=== PATIENT | male | born 1940 | race Caucasian/White ===

== ENCOUNTER 2024-01-09 06:56 | Emergency (ER) | payer BC, SELFPAY ==
--- NOTE | ~2024-01-09 | CT_ITS ---
EXAMINATION: CT CERVICAL SPINE WITHOUT CONTRAST CLINICAL INFORMATION: Status post fall. Left paraspinal TTP COMPARISON: None available. TECHNIQUE: Contiguous axial images through the cervical spine from the craniocervical junction to the thoracic inlet using 3 mm collimation with bone and soft tissue algorithm. Sagittal and coronal reformatted images acquired. This CT examination was performed using dose optimization techniques as appropriate, variously including the following: *Automated exposure control *Adjustment of mA and/or kV according to patient size (this includes techniques or standardized protocols for targeted exams where dose is matched to indication/reason for exam; i.e. extremities or head) *Use of iterative reconstruction technique DLP: 509.19 mGy-cm FINDINGS: There is an acute to transverse aerated cortical disruption at the odontoid process just below the region of cruciform ligament. There is no displacement of the tip of the odontoid process. There is a partially calcified pannus formation, periodontal. There is subchondral cyst formation in the odontoid process. Degenerative changes in the midline anterior arch of C1. The occipital condyles are intact. The lateral masses of C1 are well aligned with the occipital condyles. Multilevel marginal osteophyte formation, endplate sclerosis, subchondral cyst formation and decreased disc height from C2 C7 levels. There is a grade 1 anterolisthesis at C4-5 and C7-T1 likely degenerative. There is a grade 1 retrolisthesis C5-6 likely degenerative. Trace of edema in the anterior prevertebral compartment C1-C2 level. C1 is intact. C3 is intact. C4 is intact. C5 is intact. C6 is intact. C7 is intact. Multilevel facet joint hypertrophy, bilaterally, C3-4, to C6-7. Calcified plaques in the carotid bulbs and proximal ICAs bilaterally. Calcified plaques in the main branches of the thoracic aorta. CT/CT cervical spine wo IV con IMPRESSION: Acute type II C2 fracture, nondisplaced. Recommend further imaging evaluation with non-IV contrast MRI for additional ligamentous injury and or cord injury. Multilevel cervical spondylosis. Discussed with the requesting physician in the emergency department Dr. Thais Garcia at 9:00 AM. Fleischner guidelines were followed. Electronically signed by: Hermes Rinaldi MD 01/09/2024 09:13 AM KATIE
--- NOTE | ~2024-01-09 | CT_ITS ---
EXAMINATION: CT HEAD WITHOUT CONTRAST CLINICAL INFORMATION: Fall COMPARISON: None available. TECHNIQUE: Contiguous axial imaging was performed from the skull base to vertex without intravenous administration of contrast. This CT examination was performed using dose optimization techniques as appropriate, variously including the following: *Automated exposure control *Adjustment of mA and/or kV according to patient size (this includes techniques or standardized protocols for targeted exams where dose is matched to indication/reason for exam; i.e. extremities or head) *Use of iterative reconstruction technique DLP: 758.37 mGy-cm FINDINGS: There is a less than 6 mm extra-axial crescent-shaped hypodensity along the left external convexity without mass effect, midline shift, hydrocephalus or herniation. No acute intracranial/intraparenchymal hemorrhage. Bilateral multifocal patchy deep periventricular white matter hypodensities involving centrum semiovale and santoyo radiata. 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 Posterior cranial fossa contents demonstrated no acute intracranial hemorrhage or mass effect. Calcified plaques in the V4 segments of the vertebral arteries and cavernous supraclinoid segments both ICAs. Bony calvarium is intact. Skull base is intact. Type II C2 fracture is not fully depicted on the exam. Polypoid mucosal thickening in the included paranasal sinuses. Tympanic cavities and mastoid air cells are aerated. CT/CT head/brain wo IV con IMPRESSION: Subacute to old subdural hemorrhage versus hygroma, left hemicranial convexity. No acute intracranial hemorrhage. Small vessel occlusive disease. Please refer to the CT cervical spine. Electronically signed by: Hermes Rinaldi MD 01/09/2024 09:18 AM EST
[2024-01-09 07:02] VITALS: BP 127/70; PULSE 69; RESP 16; TEMP 36.5; O2SAT 95
[2024-01-09 07:13] VITALS: BP 127/70; PULSE 69; RESP 16; TEMP 36.5; O2SAT 95; BMI 33.0
--- NOTE | 2024-01-09 07:19 | ED.FALL ---
HPI - Fall General Chief Complaint: Fall Stated Complaint: FALL Time Seen by Provider: 01/09/24 07:13 Source: patient Mode of arrival: EMS History of Present Illness ED Provider: Radha [facility] Narrative: 83-year-old male who states that he was attempting to get out of bed and fell striking his head, denies any use of blood thinners, denies any loss of consciousness and reports some mild left shoulder pain. Related Data Allergies Allergy/AdvReac Type Severity Reaction Status Date / Time No Known Allergies Allergy Verified 01/09/24 07:16 Review of Systems Review of Systems: Pertinent positives and negatives as stated in [facility] Social History Social History Smoked in Last 30 Days: No Use of substances other than those prescribed or required for medical reasons: No Advance Directives: No Advance Directives Information Provided: Yes Do you have a plan to hurt others: No Plan Physical Exam Vital Signs: Vital Signs: Last Vital Signs Temp 98.7 F 01/09/24 09:46 Pulse 71 01/09/24 09:46 Resp 18 01/09/24 09:46 BP 164/85 H 01/09/24 09:46 Pulse Ox 96 01/09/24 09:46 O2 Del Method Room Air 01/09/24 07:13 BMI result Body Mass Index 33.0 VITAL SIGNS: Reviewed. GENERAL: Well developed, well nourished, in no acute distress. HEAD: Normocephalic/abrasion to upper right forehead EYES: PERRLA, EOMI EARS: Ext canals without abnormality NOSE: Nares patent bilateral OROPHARYNX: no oral lesions noted, posterior pharynx clear NECK: C-collar in place without midline cervical spine tenderness to palpation or step-offs noted LUNGS: Normal breath sounds. No adventitious sounds or accessory muscle use. CARDIOVASCULAR: Regular rate and rhythm without noted murmurs ABDOMEN: Soft, non-tender, non-distended with bowel sounds. MUSCULOSKELETAL: No tenderness, deformities, or effusions noted on gross inspection. EXTREMITIES: No cyanosis, clubbing or edema. SKIN: Inspection of the skin reveals no rashes NEUROLOGIC: Alert and oriented x 4. Strength and sensation to light touch were grossly intact x 4. Medical Decision Making Medical Decision Making [facility] Narrative: 83-year-old male with history and clinical presentation, DDX: Will rule out intracranial bleed or mass effect, will rule out cervical spine fracture or subluxation. 0905: non-displaced, Type II, at base C2 fracture, informed nurse, will place patient in [place] Collar. Denies numbness or tingling into either upper extremity. 0924: old Subdural on the left 0945: I discussed with [facility] who will put me in contact with Trauma service. Patient has been informed of all results and findings. I reviewed and interpreted all investigations and there is no evidence of acute infection, there is a normocytic anemia and thrombocytopenia but there is no evidence of bleeding. Coagulation studies are within normal limits. There is no demonstrate GAYLE/electrolyte or liver enzyme derangements. 1038: I discussed the case with Dr. Davenport, ED attending at [facility] who accepts patient in transfer. Will push images over to [facility] at this time. Differential Diagnosis Differential Diagnoses: The differential diagnosis associated with the presentation includes As above Admission/Observation Consideration of admission/observation: Escalation of care including admission/observation considered As above Consult Healthcare Provider Management of the patient was discussed with: Archival Studies Professor [facility], see above Lab Data MDM Lab Attestation statement: I reviewed the patient's lab results. See above 01/09/24 09:39 01/09/24 09:39 Labs: Lab Results 01/09/24 Range/Units 09:39 WBC 6.8 (4.8-10.8) X10*3/uL RBC 3.86 L (4.60-5.80) X10*6/uL Hgb 12.8 L (14.0-18.0) g/dl Hct 37.1 L (42.0-52.0) % MCV 96.1 (80.0-98.0) fL MCH 33.2 H (27.0-33.0) pg MCHC 34.5 (31.0-36.0) g/dl RDW 12.7 (11.0-16.0) % Plt Count 159 L (160-400) X10*3/uL MPV 8.9 L (9.4-12.4) fL Immature Gran % (Auto) 0.3 (0.0-0.4) % Neut % (Auto) 77.1 H (45-73) % Lymph % (Auto) 12.2 L (20-40) % Kane % (Auto) 9.4 (2-11) % Eos % (Auto) 0.6 (0-4) % Baso % (Auto) 0.4 (0-2) % Lymph # (Auto) 0.8 L (1.2-4.9) X10*3/uL Kane # (Auto) 0.6 (0.1-1.2) X10*3/uL Eos # (Auto) 0.0 (0.0-0.4) X10*3/uL Baso # (Auto) 0.0 (0.0-0.2) X10*3/uL Abs Immat Gran (auto) 0.02 (0.00-0.03) X10*3/uL Absolute Neuts (auto) 5.2 (2.0-8.3) x10*3/uL Absolute Nucleated RBC 0.000 (0.0-0.012) X10*3/uL Nucleated RBC % (auto) 0.0 (0.0-0.2) /100WBC PT 11.4 (10.9-12.4) SEC INR 1.0 (0.9-1.1) Sodium 139 (135-145) mmol/L Potassium 4.3 (3.3-5.1) mmol/L Chloride 107 (96-108) mmol/L Carbon Dioxide 21 L (22-29) mmol/L Anion Gap 15 (12-20) BUN 13 (9-16) mg/dL Creatinine 0.89 (0.5-1.4) mg/dL Estim Creat Clear Calc 78.7 Estimated GFR > 60 Random Glucose 101 (60-115) mg/dL Calcium 9.5 (8.4-10.2) mg/dL Total Bilirubin 1.1 H (0.0-1.0) mg/dL AST 25 (5-37) U/L ALT 9 (0-40) U/L Alkaline Phosphatase 70 (39-117) U/L Total Protein 7.0 (6.5-8.0) g/dL Albumin 4.2 (3.5-5.0) g/dL Radiology Impression Discussion of test interpretation with radiology: I discussed test interpretation with the radiologist Radiologist Impression: See above Critical Care Time Critical Care Time Critical Care Time: Yes Total Critical Care Time: 60 Attestation: I personally attest to this time spent taking care of the patient. Discharge Plan Discharge Clinical Impression: Closed C2 fracture, Fall Patient Disposition: Xfer Acute Care Hospital Transfer Details: Neurosurgery, Tertiary Care, C2 fracture Print Language: [place]ish
--- NOTE | 2024-01-09 09:15 | PC.NURSE ---
patient noted to have C2 fracture on ct scan, [place] collar placed by this RN and DR Garcia holding c spine. patient remains alert and oriented x4. patient denies any weakness/tingling in extremities. patient pupils equal and reactive.
--- NOTE | 2024-01-09 09:42 | PC.NURSE ---
18# IV placed in patient right FA, labs drawn and sent
--- NOTE | 2024-01-09 09:43 | PC.NURSE ---
[place] collar placed by yuan LAM and DR Garcia
[2024-01-09 09:45] LABS: MANUAL DIFF FLAG NO
[2024-01-09 09:46] VITALS: BP 164/85; PULSE 71; RESP 18; TEMP 37.1; O2SAT 96
[2024-01-09 09:46] LABS: Basophils Percent Auto 0.4 % (0-2); Eosinophils Percent Auto 0.6 % (0-4); Hematocrit 37.1 % (42.0-52.0); Hemoglobin 12.8 g/dl (14.0-18.0); Imm Gran Abs Auto 0.02 X10*3/uL (0.00-0.03); Imm Gran Pct Auto 0.3 % (0.0-0.4); Lymphocytes Absolute Auto 0.8 X10*3/uL (1.2-4.9); Lymphocytes Percent Auto 12.2 % (20-40); Mean Corpuscular HGB Conc 34.5 g/dl (31.0-36.0); Mean Corpuscular Hemoglobin 33.2 pg (27.0-33.0); Mean Corpuscular Volume 96.1 fL (80.0-98.0); Mean Platelet Volume 8.9 fL (9.4-12.4); Monocytes Absolute Auto 0.6 X10*3/uL (0.1-1.2); Monocytes Percent Auto 9.4 % (2-11); Neutrophils Absolute Auto 5.2 x10*3/uL (2.0-8.3); Neutrophils Percent Auto 77.1 % (45-73); Platelet Count 159 X10*3/uL (160-400); Red Blood Count 3.86 X10*6/uL (4.60-5.80); Red Cell Distribution Width 12.7 % (11.0-16.0); White Blood Count 6.8 X10*3/uL (4.8-10.8)
[2024-01-09 09:52] LABS: Prothrombin Time 11.4 SEC (10.9-12.4)
[2024-01-09 10:05] LABS: Alanine Aminotransferase 9 U/L (0-40); Albumin Level 4.2 g/dL (3.5-5.0); Anion Gap 15 (12-20); Aspartate Amino Transferase 25 U/L (5-37); Bilirubin Total 1.1 mg/dL (0.0-1.0); Blood Urea Nitrogen 13 mg/dL (9-16); Calcium 9.5 mg/dL (8.4-10.2); Carbon Dioxide 21 mmol/L (22-29); Chloride 107 mmol/L (96-108); Creatinine Clr Calc Pharmacy 78.7; Estimated Glomerular Filt Rate > 60; Glucose Random 101 mg/dL (60-115); Potassium 4.3 mmol/L (3.3-5.1); Sodium 139 mmol/L (135-145)
[2024-01-09 10:11] LABS: Alkaline Phosphatase 70 U/L (39-117)
[2024-01-09 11:07] VITALS: BP 173/80; PULSE 69; RESP 12; TEMP 36.8; O2SAT 100
--- NOTE | 2024-01-09 11:20 | PC.NURSE ---
ED transfer report given to Yessy
--- NOTE | 2024-01-09 11:30 | PC.NURSE ---
ems report given to car
== END 2024-01-09 12:30 | disposition short-term general hospital (02) ==
PROVIDERS: Emergency Provider Student in an Organized Health Care Education/Training Program; PCP Internal Medicine
DX: S12.100A Unspecified displaced fracture of second cervical vertebra, initial encounter for closed fracture (principal); R51.9 Headache, unspecified; M54.2 Cervicalgia; W06.XXXA Fall from bed, initial encounter; Y93.89 Activity, other specified; Y92.89 Other specified places as the place of occurrence of the external cause; Y99.8 Other external cause status; Z79.899 Other long term (current) drug therapy
CPT/HCPCS: 36415; 70450; 72125; 80053; 85025; 85610; 99284; 99285

== ENCOUNTER → 2024-01-09 07:23 | Outpatient (BNV) | payer BC, SELFPAY | PROVIDERS: Emergency Provider Student in an Organized Health Care Education/Training Program; PCP Internal Medicine; Visit Provider Radiology Diagnostic Radiology | DX: S12.101A Unspecified nondisplaced fracture of second cervical vertebra, initial encounter for closed fracture (principal) | CPT/HCPCS: 70450; 72125 ==